=== PATIENT | female | born 1935 | race Two or more races ===

== ENCOUNTER 2021-10-13 15:49 | Emergency (ER) | payer SELFPAY ==
[~2021-10-13] VITALS: Ht 157.5 cm; Wt 60.8 kg
[2021-10-13 15:59] VITALS: BP 158/100
== END 2021-10-14 01:00 | disposition left against medical advice (07) ==
LOC: ER 15:50
DX: R06.02 Shortness of breath (principal); Z53.21 Procedure and treatment not carried out due to patient leaving prior to being seen by health care provider
CPT/HCPCS: 93005